=== PATIENT | male | born 1955 | race Caucasian/White ===

== ENCOUNTER 2024-11-07 18:02 | Emergency (ER) | payer MEDICARE ==
[2024-11-07 18:30] VITALS: TEMP 97.8
--- NOTE | 2024-11-07 20:13 | ED ---
Recheck HPI - General Source: patient, RN notes reviewed, old records reviewed Mode of arrival: ambulatory Limitations: no limitations <Jani Milton - Last Filed: 11/07/24 20:12> - General Source: patient, RN notes reviewed, old records reviewed <Pramod Falcon - Last Filed: 11/08/24 01:30> - General Chief Complaint: Recheck/Abnormal Lab/Rx Stated Complaint: High BP/SOB Time Seen by Provider: 11/07/24 20:13 - History of Present Illness Initial Comments: QN-69 male presenting with extremely high blood pressure. Blood pressure greater than 200 greater than 100 at home, patient states he was not feeling well lightheaded with some chest pain back pain symptoms are resolved currently. Did take an extra blood pressure medication prior to arrival losartan and takes losartan and nifedipine daily (Jani Milton) Patient is a 69-year-old male who presents emergency department for hypertension. Patient had an episode of hypertension starting at approximately 3 PM today. Noticed that his systolics were over 200 at home. States he has been compliant with his medications, both nifedipine at night as well as losartan in the morning. Denies any shortness of breath. States he had some atypical right shoulder pain earlier as well. All symptoms have resolved. Has no symptoms currently and blood pressure is improved. He did take an extra dose of his losartan prior to arrival. Did not take his evening nifedipine. Denies any chest pain, abdominal pain with nausea, vomiting, diaphoresis. Presents for further evaluation at this time. Originally seen as a quick note. I evaluated patient when he was placed in a room. (Pramod Falcon) - Related Data Allergies Allergy/AdvReac Type Severity Reaction Status Date / Time No Known Allergies Allergy Verified 11/07/24 18:31 Review of Systems ROS Other: All systems not noted in ROS Statement are negative. <Jani Milton - Last Filed: 11/07/24 20:12> ROS Other: All systems not noted in ROS Statement are negative. <Pramod Falcon - Last Filed: 11/08/24 01:30> ROS Statement: Those systems with pertinent positive or pertinent negative responses have been documented in the HPI. Review of Systems: CONST: Denies fever EYES: Denies blurry vision ENT: Denies nasal congestion C/V: Denies Chest pain RESP: Denies shortness of breath GI: Denies abdominal pain : Denies dysuria SKIN: Denies rash. MSK: Denies joint pain. NEURO: Denies headache (Pramod Falcon) Past Medical History Past Medical History: Hypertension History of Any Multi-Drug Resistant Organisms: None Reported Additional Past Surgical History / Comment(s): stents in legs Past Psychological History: No Psychological Hx Reported Smoking Status: Current every day smoker Past Alcohol Use History: Daily Past Drug Use History: None Reported <Jani Milton - Last Filed: 11/07/24 20:12> General Exam Limitations: no limitations General appearance: alert, in no apparent distress Head exam: Present: atraumatic, normocephalic, normal inspection Eye exam: Present: normal appearance, PERRL, EOMI. Absent: scleral icterus, conjunctival injection, periorbital swelling ENT exam: Present: normal exam, mucous membranes moist Neck exam: Present: normal inspection. Absent: tenderness, meningismus, lymphadenopathy Respiratory exam: Present: normal lung sounds bilaterally. Absent: respiratory distress, wheezes, rales, rhonchi, stridor Cardiovascular Exam: Present: regular rate, normal rhythm, normal heart sounds. Absent: systolic murmur, diastolic murmur, rubs, gallop, clicks GI/Abdominal exam: Present: soft, normal bowel sounds. Absent: distended, tenderness, guarding, rebound, rigid Extremities exam: Present: normal inspection, full ROM, normal capillary refill. Absent: tenderness, pedal edema, joint swelling, calf tenderness Back exam: Present: normal inspection Neurological exam: Present: alert, oriented X3, CN II-XII intact Psychiatric exam: Present: normal affect, normal mood Skin exam: Present: warm, dry, intact, normal color. Absent: rash <Jani Milton - Last Filed: 11/07/24 20:12> <Pramod Falcon - Last Filed: 11/08/24 01:30> - General Exam Comments Initial Comments: General: Appears in no acute distress. HEAD: Normal with no signs of head trauma. EYES: EOMI ENT: Hearing grossly intact, normal oropharynx. RESPIRATORY: Clear breath sounds bilaterally. No wheezes, rales, or rhonchi. C/V: Regular rate and rhythm. S1 and S2 auscultated, no edema, peripheral pulses 2+ and intact throughout ABD: Abd is soft, nontender, nondistended EXT: Normal range of motion, no obvious deformity SKIN: No rashes or lesions observed on exposed skin. NEURO: Alert and oriented x 4. (Pramod Falcon) Course <Jani Milton - Last Filed: 11/07/24 20:12> Vital Signs 11/07/24 11/07/24 11/07/24 18:27 23:15 23:59 Temperature 97.8 F Pulse Rate 80 65 76 Respiratory 18 16 16 Rate Blood Pressure 190/75 162/72 162/72 O2 Sat by Pulse 98 99 98 Oximetry 11/08/24 00:48 Temperature Pulse Rate 72 Respiratory 15 Rate Blood Pressure 161/61 O2 Sat by Pulse 99 Oximetry - Reevaluation(s) Reevaluation #1: 11/07/24 20:12 QN completed by myself Dr Milton (Jani Milton) Medical Decision Making - Lab Data Result diagrams: 11/07/24 20:54 11/07/24 20:54 - EKG Data -: EKG Interpreted by Me <Pramod Falcon - Last Filed: 11/08/24 01:30> - Medical Decision Making Was pt. sent in by a medical professional or institution (, PA, CONSULTING PRACTICE MANAGER, urgent care, hospital, or usp...) When possible be specific @ -No Did you speak to anyone other than the patient for history (EMS, parent, family, police, friend...)? What history was obtained from this source @ -No Did you review nursing and triage notes (agree or disagree)? Why? @ -I reviewed and agree with nursing and triage notes Were old charts reviewed (outside hosp., previous admission, EMS record, old EKG, old radiological studies, urgent care reports/EKG's, usp records)? Report findings @ -No old charts were reviewed Differential Diagnosis (chest pain, altered mental status, abdominal pain women, abdominal pain men, vaginal bleeding, weakness, fever, dyspnea, syncope, headache, dizziness, GI bleed, back pain, seizure, CVA, palpatations, mental health, musculoskeletal)? @ -Hypertensive emergency, hypertensive urgency, JANET, ACS. This list is not all inclusive. EKG interpreted by me (3pts min.). @ -As above X-rays interpreted by me (1pt min.). @ -Chest x-ray reveals no obvious acute cardiopulmonary process. CT interpreted by me (1pt min.). @ -None done U/S interpreted by me (1pt. min.). @ -None done What testing was considered but not performed or refused? (CT, X-rays, U/S, labs)? Why? @ -None What meds were considered but not given or refused? Why? @ -None Did you discuss the management of the patient with other professionals (professionals i.e. , PA, CONSULTING PRACTICE MANAGER, lab, RT, psych nurse, social security specialist, parish visitor, teacher, disability insurance hearing officer, patient case manager)? Give summary @ -No Was smoking cessation discussed for >3mins.? @ -No Was critical care preformed (if so, how long)? @ -No Were there social determinants of health that impacted care today? How? (Homelessness, low income, unemployed, alcoholism, drug addiction, transportation, low edu. Level, literacy, decrease access to med. care, fci, rehab)? @ -No Was there de-escalation of care discussed even if they declined (Discuss DNR or withdrawal of care, Hospice)? DNR status @ -No What co-morbidities impacted this encounter? (DM, HTN, Smoking, COPD, CAD, Cancer, CVA, ARF, Chemo, Hep., AIDS, mental health diagnosis, sleep apnea, morbid obesity)? @ -None Was patient admitted / discharged? Hospital course, mention meds given and route, prescriptions, significant lab abnormalities, going to OR and other pertinent info. @ -Presents for episode of hypertension at home with what sounds to be symptoms. By the time I evaluated the patient, was asymptomatic. Took an extra dose of his losartan at home. Workup started as a quick note in triage. Laboratory studies unremarkable including troponin that is undetectable. EKG unremarkable. Chest x-ray unremarkable. Patient did have an episode of atypical shoulder pain when his pressure was significantly elevated earlier. I discussed results with the patient and we agreed to obtain a second troponin and EKG at the 3-hour point. Patient was in agreement this plan. Vital signs w ithin acceptable limits. He will be symptomatically treated with a 500 cc fluid bolus. I will also provide him with a dose of his evening Procardia. He was in agreement this plan. Repeat blood pressure improved. Repeat EKG unchanged. Repeat troponin undetectable. I discussed with the patient and we will discharge him home at this time. He has close follow-up with his PCP next week and I recommended he call them within the next 1 to 3 days. Strict return precautions discussed. Discussed he can take an extra dose of the losartan like he did today which seemed to help his blood pressure is high again and recommended to keep a log of his blood pressures at home. He was in agreement this plan. I instructed the patient to follow up with their PCP in the next 1-3 days. I explained that the patient should return to the emergency department if they experience any worsening symptoms. Strict return precautions were discussed with the patient. The patient expressed understanding of these instructions. I answered all questions that the patient had. The patient was discharged home in good condition with their prescriptions and follow up information. Undiagnosed new problem with uncertain prognosis? @ -No Drug Therapy requiring intensive monitoring for toxicity (Heparin, Nitro, In sulin, Cardizem)? @ -No Were any procedures done? @ -No Diagnosis/symptom? @ -Hypertension Acute, or Chronic, or Acute on Chronic? @ -Acute on chronic Uncomplicated (without systemic symptoms) or Complicated (systemic symptoms)? @ -Uncomplicated Side effects of treatment? @ -No Exacerbation, Progression, or Severe Exacerbation? @ -No Poses a threat to life or bodily function? How? (Chest pain, USA, [place], pneumonia, PE, COPD, DKA, ARF, appy, cholecystitis, CVA, Diverticulitis, Homicidal, Leatha cidal, threat to staff... and all critical care pts) @ -Unlikely at this time (Pramod Falcon) - Lab Data Lab Results 11/07/24 11/07/24 11/07/24 Range/Units 20:54 20:54 20:54 WBC 9.3 (3.8-10.6) k/uL RBC 3.87 L (4.30-5.90) m/uL Hgb 12.2 L (13.0-17.5) gm/dL Hct 36.4 L (39.0-53.0) % MCV 94.0 (80.0-100.0) fL MCH 31.5 (25.0-35.0) pg MCHC 33.5 (31.0-37.0) g/dL RDW 11.9 (11.5-15.5) % Plt Count 335 (150-450) k/uL MPV 6.5 Neutrophils % 54 % Lymphocytes % 36 % Monocytes % 5 % Eosinophils % 3 % Basophils % 1 % Neutrophils # 5.0 (1.3-7.7) k/uL Lymphocytes # 3.4 (1.0-4.8) k/uL Monocytes # 0.5 (0-1.0) k/uL Eosinophils # 0.3 (0-0.7) k/uL Basophils # 0.1 (0-0.2) k/uL Sodium 131 L (137-145) mmol/L Potassium 4.1 (3.5-5.1) mmol/L Chloride 96 L (98-107) mmol/L Carbon Dioxide 28 (22-30) mmol/L Anion Gap 7 mmol/L BUN 17 (9-20) mg/dL Creatinine 0.79 (0.66-1.25) mg/dL Est GFR (CKD-EPI)AfAm >90 (>60 ml/min/1.73 sqM) Est GFR (CKD-EPI)NonAf >90 (>60 ml/min/1.73 sqM) Glucose 146 H (74-99) mg/dL Calcium 9.6 (8.4-10.2) mg/dL Phosphorus 3.5 (2.5-4.5) mg/dL Magnesium 2.0 (1.6-2.3) mg/dL Total Bilirubin 0.7 (0.2-1.3) mg/dL AST 32 (17-59) U/L ALT 23 (4-49) U/L Alkaline Phosphatase 96 (38-126) U/L Troponin I <0.012 (0.000-0.034) ng/mL Total Protein 7.1 (6.3-8.2) g/dL Albumin 4.7 (3.5-5.0) g/dL 11/07/24 Range/Units 23:55 WBC (3.8-10.6) k/uL RBC (4.30-5.90) m/uL Hgb (13.0-17.5) gm/dL Hct (39.0-53.0) % MCV (80.0-100.0) fL MCH (25.0-35.0) pg MCHC (31.0-37.0) g/dL RDW (11.5-15.5) % Plt Count (150-450) k/uL MPV Neutrophils % % Lymphocytes % % Monocytes % % Eosinophils % % Basophils % % Neutrophils # (1.3-7.7) k/uL Lymphocytes # (1.0-4.8) k/uL Monocytes # (0-1.0) k/uL Eosinophils # (0-0.7) k/uL Basophils # (0-0.2) k/uL Sodium (137-145) mmol/L Potassium (3.5-5.1) mmol/L Chloride (98-107) mmol/L Carbon Dioxide (22-30) mmol/L Anion Gap mmol/L BUN (9-20) mg/dL Creatinine (0.66-1.25) mg/dL Est GFR (CKD-EPI)AfAm (>60 ml/min/1.73 sqM) Est GFR (CKD-EPI)NonAf (>60 ml/min/1.73 sqM) Glucose (74-99) mg/dL Calcium (8.4-10.2) mg/dL Phosphorus (2.5-4.5) mg/dL Magnesium (1.6-2.3) mg/dL Total Bilirubin (0.2-1.3) mg/dL AST (17-59) U/L ALT (4-49) U/L Alkaline Phosphatase (38-126) U/L Troponin I <0.012 (0.000-0.034) ng/mL Total Protein (6.3-8.2) g/dL Albumin (3.5-5.0) g/dL - EKG Data EKG Comments: 12-lead Electrocardiogram Interpretation Note EKG was reviewed and interpreted by myself. 12-lead ECG performed at 040 is interpreted by me as revealing normal sinus rhythm at a rate of 70 beats per minute. [place] is normal. ID interval is 138 ms, QRS duration is 102 ms, QTc is 397 ms.. There were no ST or T wave abnormalities to suggest myocardial ischemia or injury. R wave progression across the precordium was slightly delayed. By my interpretation this EKG is non-diagnostic for acute ischemia. 12-lead Electrocardiogram Interpretation Note EKG was reviewed and interpreted by myself. 12-lead ECG performed at 0002 is interpreted by me as revealing normal sinus rhythm at a rate of 64 beats per mi nute. [place] is normal. ID interval is 132 ms, QRS duration is 93 ms, QTc is 408 ms.. There were no ST or T wave abnormalities to suggest myocardial ischemia or injury. R wave progression across the precordium was slightly delayed. By my interpretation this EKG is non-diagnostic for acute ischemia. No dynamic changes when compared with EKG earlier today (Pramod Falcon) Disposition <Jani Milton - Last Filed: 11/07/24 20:12> Is patient prescribed a controlled substance at d/c from ED?: No Time of Disposition: 01:21 <Pramod Falcon - Last Filed: 11/08/24 01:30> Clinical Impression: Hypertension Disposition: HOME SELF-CARE Condition: Good Instructions (If sedation given, give patient instructions): Hypertension (ED) Additional Instructions: Follow-up with your PCP in the next 1 to 3 days regarding your hypertension. Please return to the emergency department if worsening symptoms. You can attempt to take an additional dose of your losartan like you did today which did seem to help with your blood pressure prior to your arrival. If you have more severe symptoms or cannot have appropriate blood pressure control, please return to the emergency department for further evaluation. Referrals: Clive Jovel MD [Primary Care Provider] - 1-2 days
[2024-11-07 21:07] LABS: Basophils # (A) 0.1 k/uL (0-0.2); Basophils % (A) 1 %; Eosinophils # (A) 0.3 k/uL (0-0.7); Eosinophils % (A) 3 %; HCT 36.4 % (39.0-53.0); HGB 12.2 gm/dL (13.0-17.5); Lymphocytes # (A) 3.4 k/uL (1.0-4.8); Lymphocytes % (A) 36 %; MCH 31.5 pg (25.0-35.0); MCHC 33.5 g/dL (31.0-37.0); Mean Platelet Volume 6.5; Monocytes # (A) 0.5 k/uL (0-1.0); Monocytes % (A) 5 %; Neutrophils % (A) 54 %; Platelet Count 335 k/uL (150-450); RBC 3.87 m/uL (4.30-5.90); RDW 11.9 % (11.5-15.5); WBC 9.3 k/uL (3.8-10.6)
[2024-11-07 21:19] LABS: ALT 23 U/L (4-49); AST 32 U/L (17-59); African American GFR (CKD) >90 (>60 ml/min/1.73 sqM); Albumin 4.7 g/dL (3.5-5.0); Alkaline Phosphatase 96 U/L (38-126); Anion Gap 7 mmol/L; Blood Urea Nitrogen 17 mg/dL (9-20); Calcium 9.6 mg/dL (8.4-10.2); Carbon Dioxide 28 mmol/L (22-30); Chloride 96 mmol/L (98-107); Glucose 146 mg/dL (74-99); Non-African American GFR(CKD) >90 (>60 ml/min/1.73 sqM); Phosphorus 3.5 mg/dL (2.5-4.5); Potassium 4.1 mmol/L (3.5-5.1); Sodium 131 mmol/L (137-145); Total Bilirubin 0.7 mg/dL (0.2-1.3); Total Protein 7.1 g/dL (6.3-8.2)
[2024-11-07] MEDS: SODIUM CHLORIDE 0.9% 500 ML 500 ML IV STA (23:12)
[2024-11-08 00:49] VITALS: RESP 15
[2024-11-08 01:31] VITALS: BP 132/57; PULSE 64
--- NOTE | 2024-11-08 01:45 | XR ---
EXAM: XR Chest, 1 View CLINICAL HISTORY: ITS.REASON XR Reason: chest pain TECHNIQUE: Frontal view of the chest. COMPARISON: No relevant prior studies available. FINDINGS: Lungs: Unremarkable. No consolidation. Pleural space: Unremarkable. No pneumothorax. Heart: Unremarkable. No cardiomegaly. Mediastinum: Unremarkable. Normal mediastinal contour. Bones/joints: Unremarkable. No acute fracture. IMPRESSION: No pneumonia.
== END 2024-11-08 01:30 | disposition home or self-care (01) ==
LOC: EC 18:02
DX: I10 Essential (primary) hypertension (principal); F17.200 Nicotine dependence, unspecified, uncomplicated; Z79.899 Other long term (current) drug therapy
CPT/HCPCS: 36415; 71045; 80053; 83735; 84100; 84484; 85025; 93005; 96360; 99284

== ENCOUNTER → 2024-11-10 | Outpatient (CLI) | payer MEDICARE ==
--- NOTE | 2024-11-10 11:14 | CTL ---
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 TECHNIQUE: Low dose computed tomography scan was performed through the chest at 1 mm thick sections a nd reconstructed images in multiple planes at 1 mm and [address] DLP: [address] CTDI: 1.6 mGy Automated exposure control for dose reduction was used. CT DIAGNOSTIC QUALITY: Satisfactory FINDINGS: Nodules: Right upper lobe 6 mm nodular opacity (series 6, image 14). Left lower lobe 6.4 mm nodular opacity (series 6, image 41). Peripheral left lower lobe 2.8 mm pulmonary nodule (series 6, image 43). LUNGS: COPD: Severity: Minimal Fibrosis: Severity: None Lymph nodes: None Other findings: Trace secretions within the trachea extending into the left mainstem bronchus. Minima l bilateral lower lobe subsegmental atelectasis. RIGHT PLEURAL SPACE: Effusion: None Calcification: None Thickening: None Pneumothorax: None LEFT PLEURAL SPACE: Effusion: None Calcification: None Thickening: None Pneumothorax: None HEART: Heart Size: Normal Coronary Calcification: Mild Pericardial Effusion: None OTHER FINDINGS: Upper abdomen: None Bony thorax: Mild multilevel degenerative disc disease of the visualized spine. Supraclavicular region: None Other: Atherosclerotic calcification of the aorta and its branches. IMPRESSION: 1. Diffuse scattered pulmonary nodules measuring up to 6.4 mm. 2. Minimal COPD changes. CT LUNG RAD AND CT CHEST RECOMMENDATION: Lung-Rad 3 Probably Benign: 6 month follow-up LDCT. S Modifier (other clinically significant findings): None [facility], , 11/10/2024 11:12 AM
== END | disposition home or self-care (01) ==
LOC: EDUNIT# 11-07 10:36 → RADCTMAIN 09:55
PROVIDERS: ATTEND Family Medicine
DX: Z12.2 Encounter for screening for malignant neoplasm of respiratory organs (principal); J44.9 Chronic obstructive pulmonary disease, unspecified; F17.210 Nicotine dependence, cigarettes, uncomplicated; I70.0 Atherosclerosis of aorta
CPT/HCPCS: 71271